=== PATIENT | male | born 1980 | race Caucasian/White ===

== ENCOUNTER 2021-07-22 10:29 | Emergency (ER) | payer BC ==
[2021-07-22 11:34] LABS: HEMOGLOBIN 15.4 gm/dl (14.0-17.5); RED BLOOD COUNT 5.58 M/UL (4.20-5.50); WHITE BLOOD COUNT 4.4 K/UL (4.5-11.0)
[2021-07-22 11:44] LABS: BUN/CREATININE RATIO 15 (0-10)
== END 2021-07-22 14:06 | disposition home or self-care (01) ==
LOC: ER1 10:29
PROVIDERS: Emergency Medicine
DX: U07.1 COVID-19 (principal); J96.01 Acute respiratory failure with hypoxia
CPT/HCPCS: 36600; 71045; 80053; 82803; 85025; 85379; 93005; 96374; 99285; J1885; J2405; J7030; Q9967